=== PATIENT | female | born 1985 | race Caucasian/White ===

== ENCOUNTER → 2024-01-09 | Outpatient (CLI) | payer MEDICARE, OTHER ==
--- NOTE | 2024-01-11 09:44 | MM ---
Reason for Exam: Screening (asymptomatic). Last mammogram was performed 9 year(s) and 4 month(s) ago. Patient History: Menarche at age 15. First Full-Term at age 17. Patient has history of breast feeding. Patient used Hormonal Contraceptives for 6 years. Risk Values: Irlanda 5 year model risk: 0.3%. NCI Lifetime model risk: 6.7%. Prior Study Comparison: 08/22/2014 Bilateral Diagnostic Mammogram, [facility]. Tissue Density: The breasts are heterogeneously dense, which may obscure small masses. Findings: Analyzed By CAD. There is no suspicious group of microcalcifications or new suspicious mass in either breast. Benign appearing calcifications. Overall Assessment: Benign, BI-RAD 2 Management: Screening Mammogram of both breasts in 1 year. . Patient should continue monthly self-breast exams. A clinical breast exam by your physician is recommended on an annual basis. This exam should not preclude additional follow-up of suspicious palpable abnormalities. Note on Irlanda scores and lifetime risk: 1. A Irlanda score greater than 3% is considered moderate risk. If this is the case, consider specialist referral to assess eligibility for a risk reducing agent. 2. If overall lifetime risk for the development of breast cancer is 20% or higher, the patient may qualify for future screening with alternating mammogram and breast MRI. Electronically signed and approved by: Ramone Francisco M.D. Radiologis
== END | disposition home or self-care (01) ==
LOC: RADMAMWWP 08:56
PROVIDERS: ATTEND Family Medicine
DX: Z12.31 Encounter for screening mammogram for malignant neoplasm of breast (principal)
CPT/HCPCS: 77063; 77067

== ENCOUNTER 2024-02-21 16:01 | Inpatient (IN) | payer MEDICARE, OTHER ==
--- NOTE | 2024-02-21 16:48 | ED ---
General Adult HPI - General Source: patient, RN notes reviewed Mode of arrival: ambulatory Limitations: no limitations <Tosha Roth - Last Filed: 02/27/24 10:14> - General Source: RN notes reviewed, old records reviewed Mode of arrival: ambulatory Limitations: no limitations - History of Present Illness -: days(s) Location: head, face Radiation: non-radiation Severity scale (1-10): 7 Consistency: intermittent Improves with: none Worsens with: none Associated Symptoms: denies other symptoms Treatments Prior to Arrival: none <Herbert Cooney - Last Filed: 03/05/24 22:31> - General Chief complaint: Neuro Symptoms/Deficit Stated complaint: Possible stroke Time Seen by Provider: 02/21/24 16:19 - History of Present Illness Initial comments: Quick noteis a 38-year-old female presents emergency department chief complaint of loss, headaches, and neck pain. On Tuesday. Patient was seen by her primary care provider today which was recommended to report to the emergency department for evaluation of possible stroke. Patient states that over the past few days she has been experiencing slurred speech and at night will experience drooling and blurry vision. She denies history of heart attack or stroke. Is not on blood thinners. (Tosha Roth) This is a 38-year-old female with headaches neck pain may be some vision loss left-sided numbness and swelling of the face drooling and blurry vision. No significant history of same. Patient thinks she was having CVA or stroke (Herbert Cooney) - Related Data Home Medications Medication Instructions Recorded Confirmed Escitalopram [Lexapro] 10 mg PO DAILY 02/21/24 02/21/24 Ibuprofen [Motrin Ib] 200 mg PO Q8H PRN 02/21/24 02/21/24 Levothyroxine Sodium [Synthroid] 125 mcg PO DAILY 02/21/24 02/21/24 Previous Rx's Medication Instructions Recorded Aspirin 325 mg PO DAILY #30 tab 02/24/24 Atorvastatin [Lipitor] 80 mg PO HS #30 tab 02/24/24 Famotidine [Pepcid] 20 mg PO DAILY #30 tablet 02/24/24 Naproxen [Naprosyn] 250 mg PO BID 5 Days #10 tab 02/24/24 Nystatin 100,000 Unit/gm Powd 1 applic TOPICAL BID PRN #1 each 02/24/24 [Mycostatin Powder] Nystatin 100,000 Unit/ml Susp 5 ml PO QID 7 Days #150 ml 02/24/24 [Mycostatin Oral Susp] methylPREDNISolone [Medrol Dose 0 mg PO DIRECTED #1 packet 02/24/24 Pack] Allergies Allergy/AdvReac Type Severity Reaction Status Date / Time amoxicillin Allergy Rash/Hives Verified 02/21/24 21:03 Penicillins Allergy Rash/Hives Verified 02/21/24 21:03 Review of Systems ROS Other: All systems not noted in ROS Statement are negative. <Tosha Roth - Last Filed: 02/27/24 10:14> ROS Other: All systems not noted in ROS Statement are negative. <Herbert Cooney - Last Filed: 03/05/24 22:31> ROS Statement: Those systems with pertinent positive or pertinent negative responses have been documented in the HPI. Past Medical History Past Medical History: Thyroid Disorder History of Any Multi-Drug Resistant Organisms: None Reported Past Surgical History: No Surgical Hx Reported Past Psychological History: Anxiety, Bipolar, Depression Smoking Status: Never smoker Past Alcohol Use History: Rare Past Drug Use History: None Reported <Tosha Roth - Last Filed: 02/27/24 10:14> General Exam Limitations: no limitations <Tosha Roth - Last Filed: 02/27/24 10:14> General appearance: alert, in no apparent distress Head exam: Present: atraumatic, normocephalic, normal inspection Eye exam: Present: normal appearance, PERRL, EOMI. Absent: scleral icterus, conjunctival injection, periorbital swelling ENT exam: Present: normal exam, mucous membranes moist Neck exam: Present: normal inspection. Absent: tenderness, meningismus, lymphadenopathy Respiratory exam: Present: normal lung sounds bilaterally. Absent: respiratory distress, wheezes, rales, rhonchi, stridor Cardiovascular Exam: Present: regular rate, normal rhythm, normal heart sounds. Absent: systolic murmur, diastolic murmur, rubs, gallop, clicks GI/Abdominal exam: Present: soft, normal bowel sounds. Absent: distended, tenderness, guarding, rebound, rigid Extremities exam: Present: normal inspection, full ROM, normal capillary refill. Absent: tenderness, pedal edema, joint swelling, calf tenderness Back exam: Present: normal inspection Neurological exam: Present: alert, oriented X3, CN II-XII intact Psychiatric exam: Present: normal affect, normal mood Skin exam: Present: warm, dry, intact, normal color. Absent: rash <Herbert Cooney - Last Filed: 03/05/24 22:31> - General Exam Comments Initial Comments: Visual Physical Exam Vital signs reviewed General: Well-appearing, nontoxic, no acute distress. Head: Normocephalic, atraumatic Eyes: PERRLA, EOMI ENT: Airway patent Chest: Nonlabored breathing Skin: No visual rash, normal skin tone Neuro: Alert and oriented 3 Musculoskeletal: No gross abnormalities (Stieler,Tosha) Course <Herbert Cooney - Last Filed: 03/05/24 22:31> Vital Signs 02/21/24 02/21/24 02/22/24 16:17 19:21 02:46 Temperature 97.9 F Pulse Rate 87 90 84 Pulse Rate [ Pulse Oximetery ] Respiratory 18 18 18 Rate Blood Pressure 174/96 137/90 127/88 Blood Pressure [Right Arm Sitting] O2 Sat by Pulse 94 L 98 99 Oximetry 02/22/24 02/22/24 02/22/24 04:30 06:53 07:32 Temperature 97.9 F Pulse Rate 82 79 77 Pulse Rate [ Pulse Oximetery ] Respiratory 18 18 18 Rate Blood Pressure 126/76 116/88 137/74 Blood Pressure [Right Arm Sitting] O2 Sat by Pulse 100 96 97 Oximetry 02/22/24 02/22/24 02/22/24 11:11 14:22 18:12 Temperature 98.0 F 98.2 F Pulse Rate 96 96 Pulse Rate [ 74 Pulse Oximetery ] Respiratory 18 16 Rate Blood Pressure 106/68 Blood Pressure 119/61 [Right Arm Sitting] O2 Sat by Pulse 98 97 Oximetry - Reevaluation(s) Reevaluation #1: Medical records reviewed (Herbert Cooney) Reevaluation #2: Patient symptoms unchanged (Herbert Cooney) Reevaluation #3: Patient informed of results questions answered (Herbert Cooney) Reevaluation #4: Was pt. sent in by a medical professional or institution (ELOISA Woods, LIFE TRAINER, urgent care, hospital, or [facility]...) When possible be specific @ -no Did you speak to anyone other than the patient for history (EMS, parent, family, police, friend...)? What history was obtained from this source @ -no Did you review nursing and triage notes (agree or disagree)? Why? @ -agree Are old charts reviewed (outside hosp., previous admission, EMS record, old EKG, old radiological studies, urgent care reports/EKG's, [facility] records)? Report findings @ -yes Differential Diagnosis (chest pain, altered mental status, abdominal pain women, abdominal pain men, vaginal bleeding, weakness, fever, dyspnea, syncope, headache, dizziness, GI bleed, back pain, seizure, CVA, palpatations, mental health, musculoskeletal)? @ -prior EKG interpreted by me (3pts min.). @ -yes X-rays interpreted by me (1pt min.). @ -yes negative for acute disease CT interpreted by me (1pt min.). @ - U/S interpreted by me (1pt. min.). @ -no What testing was considered but not performed or refused? (CT, X-rays, U/S, labs)? Why? @ -none What meds were considered but not given or refused? Why? @ -none Did you discuss the management of the patient with other professionals (professionals i.e. ELOISA Woods, LIFE TRAINER, lab, RT, psych nurse, high school social studies tutor, prospecting driller helper, teacher, equal employment opportunity officer, vocational case manager)? Give summary @ -no Was smoking cessation discussed for >3mins.? @ -no Was critical care preformed (if so, how long)? @ -no Were there social determinants of health that impacted care today? How? (Homelessness, low income, unemployed, alcoholism, drug addiction, transportation, low edu. Level, literacy, decrease access to med. care, snf, rehab)? @ -none Was there de-escalation of care discussed even if they declined (Discuss DNR or withdrawal of care, Hospice)? DNR status @ -no What co-morbidities impacted this encounter? (DM, HTN, Smoking, COPD, CAD, Cancer, CVA, ARF, Chemo, Hep., AIDS, mental health diagnosis, sleep apnea, morbid obesity)? @ -none Was patient admitted / discharged? Hospital course, mention meds given and route, prescriptions, significant lab abnormalities, going to OR and other pertinent info. @ - 38 Female to ER for right-sided facial numbness CVA TIA, patient symptoms are improved not a tPA candidate secondary onset of timing. Patient symptoms are persistent here in the ER and will admit for neurology evaluation Admitted yes negative for acute disease Undiagnosed new problem with uncertain prognosis? @ -no Drug Therapy requiring intensive monitoring for toxicity (Heparin, Nitro, Ins ulin, Cardizem)? @ -no Were any procedures done? @ -no Diagnosis/symptom? @ -CVA versus TIA Acute, or Chronic, or Acute on Chronic? @ -Acute Uncomplicated (without systemic symptoms) or Complicated (systemic symptoms)? @ -Complicated Side effects of treatment? @ -no Exacerbation, Progression, or Severe Exacerbation? @ -exacerbation Poses a threat to life or bodily function? How? (Chest pain, USA, ME, pneumonia, PE, COPD, DKA, ARF, appy, cholecystitis, CVA, Diverticulitis, Homicidal, Suici bret, threat to staff... and all critical care pts) @ -yes with significant CVA (Herbert Cooney) Reevaluation #5: Differential CVA Ischemic stroke, hemorrhagic stroke, brain tumor, atypical migraine, Wernicke's encephalopathy, seizure, multiple sclerosis, meningitis, encephalitis, hypoglycemia, Guillain-Villatoro, electrolytes disturbance, myasthenia gravis.... This is not meant to be an all-inclusive list (Herbert Cooney) - Consultations Consultation #1: Poke with Dr. Palma who will see this patient (Herbert Cooney) EKG Findings - EKG Comments: EKG Findings:: EKG is sinus 89 RI 162 QRS 88 QTc 404 - EKG Results: EKG: interpreted by ERMD <Herbert Cooney - Last Filed: 03/05/24 22:31> Medical Decision Making - Lab Data Result diagrams: 02/21/24 16:45 02/21/24 16:45 <Tosha Roth - Last Filed: 02/27/24 10:14> - Lab Data Result diagrams: 02/21/24 16:45 02/21/24 16:45 - EKG Data -: EKG Interpreted by Me - Radiology Data Radiology results: report reviewed (Brain CTA head neck chest x-ray negative for acute disease), image reviewed <Herbert Cooney - Last Filed: 03/05/24 22:31> - Medical Decision Making I completed the quick note portion of this chart signed Tosha Roth PA-C (Tosha Roth) 38 Female to ER for right-sided facial numbness CVA TIA, patient symptoms are improved not a tPA candidate secondary onset of timing. Patient symptoms are persistent here in the ER and will admit for neurology evaluation (Herbert Cooney) - Lab Data Lab Results 02/21/24 02/21/24 02/21/24 Range/Units 02:00 16:45 16:45 WBC 7.1 (3.8-10.6) k/uL RBC 5.02 (3.80-5.40) m/uL Hgb 14.3 (11.4-16.0) gm/dL Hct 43.7 (34.0-46.0) % MCV 87.1 (80.0-100.0) fL MCH 28.4 (25.0-35.0) pg MCHC 32.7 (31.0-37.0) g/dL RDW 12.3 (11.5-15.5) % Plt Count 255 (150-450) k/uL MPV 8.8 Neutrophils % 57 % Lymphocytes % 28 % Monocytes % 7 % Eosinophils % 3 % Basophils % 1 % Neutrophils # 4.1 (1.3-7.7) k/uL Lymphocytes # 2.0 (1.0-4.8) k/uL Monocytes # 0.5 (0-1.0) k/uL Eosinophils # 0.2 (0-0.7) k/uL Basophils # 0.1 (0-0.2) k/uL PT 10.6 (10.0-12.5) sec INR 1.0 (<1.2) APTT 25.0 (22.0-30.0) sec Sodium (137-145) mmol/L Potassium (3.5-5.1) mmol/L Chloride (98-107) mmol/L Carbon Dioxide (22-30) mmol/L Anion Gap mmol/L BUN (7-17) mg/dL Creatinine (0.52-1.04) mg/dL Est GFR (CKD-EPI)AfAm (>60 ml/min/1.73 sqM) Est GFR (CKD-EPI)NonAf (>60 ml/min/1.73 sqM) Glucose (74-99) mg/dL Estimated Ave Glu mg/dL mg/dL Hemoglobin A1c (<=6.0) % Calcium (8.4-10.2) mg/dL Magnesium (1.6-2.3) mg/dL Total Bilirubin (0.2-1.3) mg/dL AST (14-36) U/L ALT (4-34) U/L Alkaline Phosphatase (38-126) U/L Creatine Kinase (30-135) U/L Troponin I (0.000-0.034) ng/mL Total Protein (6.3-8.2) g/dL Albumin (3.5-5.0) g/dL Triglycerides (0.00-149.00) mg/dL Cholesterol (0.00-200.00) mg/dL LDL Cholesterol, Calc (0.0-131.0) mg/dL VLDL Cholesterol, Calc (5.00-40.00) mg/dL HDL Cholesterol (40.00-60.00) mg/dL Cholesterol/HDL Ratio Ratio Acetylcholine Recept Ab <0.30 nmol/L 02/21/24 02/21/24 02/21/24 Range/Units 16:45 16:45 16:45 WBC (3.8-10.6) k/uL RBC (3.80-5.40) m/uL Hgb (11.4-16.0) gm/dL Hct (34.0-46.0) % MCV (80.0-100.0) fL MCH (25.0-35.0) pg MCHC (31.0-37.0) g/dL RDW (11.5-15.5) % Plt Count (150-450) k/uL MPV Neutrophils % % Lymphocytes % % Monocytes % % Eosinophils % % Basophils % % Neutrophils # (1.3-7.7) k/uL Lymphocytes # (1.0-4.8) k/uL Monocytes # (0-1.0) k/uL Eosinophils # (0-0.7) k/uL Basophils # (0-0.2) k/uL PT (10.0-12.5) sec INR (<1.2) APTT (22.0-30.0) sec Sodium 141 (137-145) mmol/L Potassium 3.8 (3.5-5.1) mmol/L Chloride 108 H (98-107) mmol/L Carbon Dioxide 27 (22-30) mmol/L Anion Gap 6 mmol/L BUN 9 (7-17) mg/dL Creatinine 0.45 L (0.52-1.04) mg/dL Est GFR (CKD-EPI)AfAm >90 (>60 ml/min/1.73 sqM) Est GFR (CKD-EPI)NonAf >90 (>60 ml/min/1.73 sqM) Glucose 106 H (74-99) mg/dL Estimated Ave Glu mg/dL 111 mg/dL Hemoglobin A1c 5.5 (<=6.0) % Calcium 9.1 (8.4-10.2) mg/dL Magnesium 1.8 (1.6-2.3) mg/dL Total Bilirubin 0.8 (0.2-1.3) mg/dL AST 41 H (14-36) U/L ALT 40 H (4-34) U/L Alkaline Phosphatase 98 (38-126) U/L Creatine Kinase 517 H (30-135) U/L Troponin I <0.012 (0.000-0.034) ng/mL Total Protein 7.6 (6.3-8.2) g/dL Albumin 4.6 (3.5-5.0) g/dL Triglycerides (0.00-149.00) mg/dL Cholesterol (0.00-200.00) mg/dL LDL Cholesterol, Calc (0.0-131.0) mg/dL VLDL Cholesterol, Calc (5.00-40.00) mg/dL HDL Cholesterol (40.00-60.00) mg/dL Cholesterol/HDL Ratio Ratio Acetylcholine Recept Ab nmol/L 02/21/24 02/22/24 02/22/24 Range/Units 22:26 02:00 06:00 WBC (3.8-10.6) k/uL RBC (3.80-5.40) m/uL Hgb (11.4-16.0) gm/dL Hct (34.0-46.0) % MCV (80.0-100.0) fL MCH (25.0-35.0) pg MCHC (31.0-37.0) g/dL RDW (11.5-15.5) % Plt Count (150-450) k/uL MPV Neutrophils % % Lymphocytes % % Monocytes % % Eosinophils % % Basophils % % Neutrophils # (1.3-7.7) k/uL Lymphocytes # (1.0-4.8) k/uL Monocytes # (0-1.0) k/uL Eosinophils # (0-0.7) k/uL Basophils # (0-0.2) k/uL PT (10.0-12.5) sec INR (<1.2) APTT (22.0-30.0) sec Sodium (137-145) mmol/L Potassium (3.5-5.1) mmol/L Chloride (98-107) mmol/L Carbon Dioxide (22-30) mmol/L Anion Gap mmol/L BUN (7-17) mg/dL Creatinine (0.52-1.04) mg/dL Est GFR (CKD-EPI)AfAm (>60 ml/min/1.73 sqM) Est GFR (CKD-EPI)NonAf (>60 ml/min/1.73 sqM) Glucose (74-99) mg/dL Estimated Ave Glu mg/dL mg/dL Hemoglobin A1c (<=6.0) % Calcium (8.4-10.2) mg/dL Magnesium (1.6-2.3) mg/dL Total Bilirubin (0.2-1.3) mg/dL AST (14-36) U/L ALT (4-34) U/L Alkaline Phosphatase (38-126) U/L Creatine Kinase (30-135) U/L Troponin I <0.012 <0.012 (0.000-0.034) ng/mL Total Protein (6.3-8.2) g/dL Albumin (3.5-5.0) g/dL Triglycerides 120.00 (0.00-149.00) mg/dL Cholesterol 124.00 (0.00-200.00) mg/dL LDL Cholesterol, Calc 57.0 (0.0-131.0) mg/dL VLDL Cholesterol, Calc 24.00 (5.00-40.00) mg/dL HDL Cholesterol 43.00 (40.00-60.00) mg/dL Cholesterol/HDL Ratio 2.88 Ratio Acetylcholine Recept Ab nmol/L Disposition <Tosha Roth - Last Filed: 02/27/24 10:14> <Herbert Cooney - Last Filed: 03/05/24 22:31> Clinical Impression: Cerebrovascular accident (CVA), Transient cerebral ischemia Disposition: ADMITTED IP TO THIS HOSP Condition: Stable
[2024-02-21 17:11] LABS: Basophils # (A) 0.1 k/uL (0-0.2); Basophils % (A) 1 %; Eosinophils # (A) 0.2 k/uL (0-0.7); Eosinophils % (A) 3 %; HCT 43.7 % (34.0-46.0); HGB 14.3 gm/dL (11.4-16.0); Lymphocytes % (A) 28 %; MCH 28.4 pg (25.0-35.0); MCHC 32.7 g/dL (31.0-37.0); MCV 87.1 fL (80.0-100.0); Mean Platelet Volume 8.8; Monocytes # (A) 0.5 k/uL (0-1.0); Monocytes % (A) 7 %; Neutrophils # (A) 4.1 k/uL (1.3-7.7); Neutrophils % (A) 57 %; Platelet Count 255 k/uL (150-450); RBC 5.02 m/uL (3.80-5.40); RDW 12.3 % (11.5-15.5); WBC 7.1 k/uL (3.8-10.6)
[2024-02-21 17:20] LABS: Prothrombin Time 10.6 sec (10.0-12.5)
[2024-02-21 17:23] LABS: ALT 40 U/L (4-34); AST 41 U/L (14-36); African American GFR (CKD) >90 (>60 ml/min/1.73 sqM); Albumin 4.6 g/dL (3.5-5.0); Alkaline Phosphatase 98 U/L (38-126); Anion Gap 6 mmol/L; Blood Urea Nitrogen 9 mg/dL (7-17); Calcium 9.1 mg/dL (8.4-10.2); Carbon Dioxide 27 mmol/L (22-30); Chloride 108 mmol/L (98-107); Creatine Kinase 517 U/L (30-135); Glucose 106 mg/dL (74-99); Magnesium 1.8 mg/dL (1.6-2.3); Non-African American GFR(CKD) >90 (>60 ml/min/1.73 sqM); Potassium 3.8 mmol/L (3.5-5.1); Sodium 141 mmol/L (137-145); Total Bilirubin 0.8 mg/dL (0.2-1.3); Total Protein 7.6 g/dL (6.3-8.2)
--- NOTE | 2024-02-21 17:47 | CT ---
EXAMINATION TYPE: CT brain wo con DATE OF EXAM: 02/21/2024 COMPARISON: None. HISTORY: dizziness, slurred speech, [place] CT DLP: 1210.4 mGycm. Automated Exposure Control for Dose Reduction was Utilized. TECHNIQUE: CT scan of the head is performed without contrast. FINDINGS: There is no acute intracranial hemorrhage, mass effect, or midline shift identified. The ventricles and sulci are within normal limits in size. Matt-white matter differentiation is maintai frances. No suspicious opacification mastoid air cells. The globes are intact and the visualized sinuses are clear. IMPRESSION: No acute intracranial hemorrhage or midline shift is seen.
[2024-02-21] MEDS: MORPHINE SULFATE 4 MG/ML SYRINGE IVP STA (20:16)
--- NOTE | 2024-02-21 20:34 | XR ---
EXAMINATION TYPE: XR chest 2V DATE OF EXAM: 02/21/2024 7:32 PM CLINICAL INDICATION:Female, 38 years old with history of altered mental status; [facility] COMPARISON: None TECHNIQUE: XR chest 2V Frontal and lateral views of the chest. FINDINGS: Lungs/Pleura: Subsegmental atelectasis present in the lung bases. No pleural effusions or pneumothora x Pulmonary vascularity: Unremarkable. Heart/mediastinum: Cardiomediastinal silhouette is unremarkable. Musculoskeletal: No acute osseous pathology. IMPRESSION: No acute cardiopulmonary disease/process.
--- NOTE | 2024-02-21 21:28 | CT ---
EXAMINATION TYPE: CT angio head neck CT DLP: 606.4 mGycm, Automated exposure control for dose reduction was used. DATE OF EXAM: 02/21/2024 9:08 PM COMPARISON: CT brain same day. CLINICAL INDICATION:Female, 38 years old with history of rizo; PHH, headache TECHNIQUE: Axially acquired helical CT angiogram of the head and neck was obtained with contrast. Axi al images are supplemented with 3D reconstructions which [facility] NASCET criteria used. Contrast used:65 cc mL of Isovue 370 with IV Contrast, Oral contrast used: None. FINDINGS: CTA HEAD: The visualized portions of the internal carotid arteries, middle cerebral arteries, anterior cerebral arteries, and posterior cerebral arteries are patent. The basilar and vertebral arteries are patent. The bilateral vertebral artery V4 segments are diminut latisha in size, however there is partial circulation identified supplying the posterior cerebral a rteries. Basilar artery is also diminutive in size, however its branches are patent CTA NECK: Right Carotid System: The common carotid artery and external carotid artery are patent. The carotid bifurcation demonstrate s no evidence of hemodynamically significant stenosis. The remaining portions of the internal carotid artery demonstrate normal size without significant narrowing. Left Carotid System: The common carotid artery and external carotid artery are patent. The carotid bifurcation demonstrate s no evidence of hemodynamically significant stenosis. The remaining portions of the internal carotid artery demonstrate normal size without significant narrowing. Vertebral arteries are patent without evidence hemodynamically significant stenosis. There is a three-vessel aortic arch. The origins of the great vessels are patent. No evidence of hemo dynamically significant stenosis. Upper thorax: Unremarkable IMPRESSION: 1. No evidence of dissection of the cervical internal carotid arteries or vertebral arteries or any e vidence of significant stenosis at the carotid bifurcations. 2. No evidence of intracranial high-grade stenosis or intracranial aneurysm.
[2024-02-22] MEDS: ASPIRIN 325 MG TAB PO STA (00:20)
[2024-02-22] MEDS: SODIUM CHLORIDE 0.9% 1,000 ML IV SCH (00:22)
[2024-02-22] MEDS: MORPHINE SULFATE 4 MG/ML SYRINGE IVP PRN (04:32)
[2024-02-22] MEDS: ASPIRIN 325 MG TAB PO SCH (08:08)
[2024-02-22 09:10] LABS: Chol/HDL Ratio 2.88 Ratio
--- NOTE | 2024-02-22 16:28 | P.CNNES ---
History of Present Illness Consult date: 02/22/24 Requesting physician: Herbert Cooney Reason for Consult: dysarthria History of Present Illness: Patient is a 38-year-old right-handed female came to the hospital yesterday (Tuesday) at 4:01 PM for acute onset of neurological symptoms. Patient states that on Tuesday at 8 PM she was sitting when she suddenly noticed numbness of the right side of the neck pointing to the lateral side of the neck, and blurred vision. Also complaining of some pain in the upper thoracic spine region and posterior shoulders bilaterally. She also noticed for dizziness and she started slurring words could barely talk. She was drooling. She laid there for half an hour, and felt was "out of it" although still knew her surroundings and would able to answer questions if somebody would ask. Patient's also noticed right facial droop, but was not very significant, very minimally noticeable. Patient stayed home. 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 She went to the trip, but did not talk much because of the slurring. She tried her son's chicken nuggets, but almost choked on it. Her symptoms stayed like this, but then she decided to come to the ER on Tuesday (yesterday). Patient states that her slurring gets worse at around 8 or 9 PM along with drooling, but then is better during the daytime. Facial droop has resolved. Patient now complaining of numbness of right side of the neck, with pain in the upper dorsal spine and across the posterior shoulder region. Denies any numbness or tingling of the extremities or any focal weakness or balance problem. Patient's noticed that the facial droop lasted for about a day and a half. At present she also feels her left ear feels draining. Sometimes she is noticing "stabbing pain in the right posterior shoulder region which is better with Tylenol. Also complaining of some pain in the upper sternal region. Vital signs on arrival blood pressure 174/96, which came down to 137/90. Pulse rate 87 temperature 97.9. Blood test shows normal CBC, PT PTT, normal basic metabolic panel. AST is 41, ALT 40, CK5 and 17. Troponins negative. Lipid panel with cholesterol 124 LDL 57, HDL [address] head showed no acute intracranial process. I personally reviewed CT head, agree with the findings. There is probable arachnoid cyst involving the posterior fossa. EKG showed sinus rhythm. Chest x-ray showed no acute process. CTA of head and neck showed no evidence of dissection of the cervical internal carotid arteries or vertebral arteries or any evidence of significant stenosis at the carotid bifurcation. No evidence of intracranial high-grade stenosis or intracranial aneurysm. Home medications include levothyroxine, ibuprofen, Abilify 10 mg daily and Lexapro 10 mg daily. Patient does not take any antiplatelet medication at home. Patient is a non-smoker, denies hypertension diabetes or any alcohol use. Denies any history of injury. Does not follow-up with the chiropractors. Patient has history of "mood swings" and anxiety for which she has been on Lexapro for several months. Just on 01/30/2024 she was started on Abilify 10 mg daily. Also takes levothyroxine. Review of Systems Constitutional: Denies chills, Denies fever Eyes: bilateral blurred vision, denies diplopia, denies pain, denies loss of vision Ears: deny: decreased hearing, ear discharge Ears, nose, mouth and throat: Reports headache (Bad migraine tuesday, had C[place] off and on since then), Denies sore throat, Denies vertigo Cardiovascular: Denies chest pain, Denies lightheadedness, Denies shortness of breath Respiratory: Reports cough (Front of chest) Gastrointestinal: Denies abdominal pain, Denies diarrhea, Denies nausea, Denies vomiting Genitourinary: Denies dysuria, Denies hematuria, Denies urge incontinence Musculoskeletal: Reports low back pain, Reports neck pain Integumentary: Denies pruritus, Denies rash Neurological: Reports as per HPI Psychiatric: Reports anxiety, Reports depression Endocrine: Reports fatigue, Denies weight change Hematologic/Lymphatic: Reports easy bruising, Denies easy bleeding, Denies lymphadenopathy Past Medical History Past Medical History: Thyroid Disorder History of Any Multi-Drug Resistant Organisms: None Reported Past Surgical History: No Surgical Hx Reported Past Psychological History: Anxiety, Bipolar, Depression Smoking Status: Never smoker Past Alcohol Use History: Rare Past Drug Use History: None Reported Medications and Allergies Home Medications Medication Instructions Recorded Confirmed Type ARIPiprazole [Abilify] 10 mg PO DAILY 02/21/24 02/21/24 History Escitalopram [Lexapro] 10 mg PO DAILY 02/21/24 02/21/24 History Ibuprofen [Motrin Ib] 200 mg PO Q8H PRN 02/21/24 02/21/24 History Levothyroxine Sodium [Synthroid] 125 mcg PO DAILY 02/21/24 02/21/24 History Allergies Allergy/AdvReac Type Severity Reaction Status Date / Time amoxicillin Allergy Rash/Hives Verified 02/21/24 21:03 Penicillins Allergy Rash/Hives Verified 02/21/24 21:03 Physical Examination - Vital Signs Vital Signs: Vital Signs Temp Pulse Pulse Resp BP BP Pulse Ox 02/22/24 11:11 98.0 F 74 18 119/61 98 02/22/24 07:32 97.9 F 77 18 137/74 97 02/22/24 06:53 79 18 116/88 96 02/22/24 04:30 82 18 126/76 100 02/22/24 02:46 84 18 127/88 99 02/21/24 19:21 90 18 137/90 98 02/21/24 16:17 97.9 F 87 18 174/96 94 L Intake and Output 02/21/24 02/22/24 02/22/24 22:59 06:59 14:59 Other: Weight 99.79 kg Patient is a middle aged female, very pleasant, no acute distress. Patient is alert awake oriented to time place and person. Speech and language functions are normal. Patient can name and repeat very well. No aphasia or dysarthria. Attention, concentration and fund of knowledge is adequate. On cranial nerve examination, pupils are equal, round and reacting to light, visual galeas are full on confrontation, with no neglect on double simultaneous stimulation. Extraocular muscles are intact with no nystagmus. Face is symmetric, tongue protrudes to the midline. Palatal elevation and sensation normal, hearing and shoulder shrug normal, facial sensation normal. On muscle strength testing, there is no pronator drift and the strength is normal in arms and legs distally and proximally. Deep tendon reflexes are symmetric trace at the biceps and brachioradialis, 1+ at the knees, 1 ankles and plantars are withdrawal bilaterally. Sensory to touch is equal with no neglect on double simultaneous stimulation. Cerebellar function showed no ataxia for [id number] testing. No dysdiadochokinesia. No ataxia for [id number] testing on either side. Tone and bulk of muscles normal. Gait deferred.. On general examination, there is no carotid bruit or murmur, S1-S2 audible. Chest is clear on consultation. Abdomen is soft nontender. No organomegaly, bowel sounds present. Peripheral pulses are present. No peripheral edema. Results - Laboratory Findings CBC and BMP: 02/21/24 16:45 02/21/24 16:45 Abnormal Lab Findings: Abnormal Labs 02/21/24 16:45 Chloride 108 H Creatinine 0.45 L Glucose 106 H AST 41 H ALT 40 H Creatine Kinase 517 H Assessment and Plan Assessment: * 38-year-old female presenting with vague neurological symptoms of intermittent difficulty speaking, numbness of right side of the neck, blurred vision, dizziness, pain in the upper dorsal spine and across the posterior shoulder. Family also noticed some possible right facial droop that resolved in about a day and a half. Localization of symptoms are somewhat difficult, uncertain if cerebral, or cervical as the liter would not support facial drooping, blurred vision. Her neurological examination is normal. Patient's current NIH stroke scale is 0. CTA head and neck ruled out carotid or vertebral artery dissection. Patient not a candidate for tPA, as she came outside the window. * Anxiety disorder, mood swings * Hypothyroidism Plan: * Symptoms are very unusual, atypical. We will check MRI of the brain with and without contrast, rule out any CVA or demyelinating disease. * CTA of head and neck showed no evidence of dissection of the cervical internal carotid arteries or vertebral arteries or any evidence of significant stenosis at the carotid bifurcation. No evidence of intracranial high-grade stenosis or intracranial aneurysm. * 2D echo rule out embolic source. * Lipid panel is well-controlled with cholesterol 124, LDL 57, HDL 43 and trig lycerides 120. * Hemoglobin A1c. * Agree with starting aspirin 325 mg daily for now. * Telemetry monitoring. * Patient was just recently started on Abilify 3 weeks ago. Discontinue Abilify for now. * Neurology will follow. Thank you for the consult.
[2024-02-22] MEDS: ATORVASTATIN 80 MG TAB PO SCH (21:48)
[2024-02-22] MEDS: ESCITALOPRAM 10 MG TAB PO SCH (21:49)
[2024-02-22] MEDS: LEVOTHYROXINE 125 MCG TAB PO SCH (21:49)
[2024-02-22] MEDS: PANTOPRAZOLE 40 MG/10 ML VIAL IVP SCH (21:49)
[2024-02-23] MEDS: ACETAMINOPHEN TAB 325 MG TAB PO PRN (06:24)
--- NOTE | 2024-02-23 08:56 | P.HPIM ---
History of Present Illness H&P Date: 02/22/24 Chief Complaint: Dysarthria This is a 38-year-old female with past medical history significant for migraines, hypothyroidism, bipolar, anxiety, depression and multiple other medical issues presented to the ER yesterday with complaints of right-sided facial numbness, accompanied by intermittent blurred vision and dysarthria.. Vague historian. reports over the the last week she had mild migraines, neck pain approximately C5 to C6. Denies syncope, fall, injury or trauma. Denies chiropractor treatment .Denies motor strength loss, denies incoordination, denies dropping things. Denies numbness or tingling of extremities. Denies smoking, alcohol or illicit drug use. reports on Tuesday, another mild migraine developed accompanied by tenderness along bilateral posterior shoulders. Tuesday night, between 7 and 8 PM, symptoms progressed ,developed trouble speaking, fluctuating blurred vision ,swollen, numb jawline. Denies difficulty swallowing or eating. Denies facial droop. denies chest pain, palpitations or shortness of breath. Tuesday, took her son to the zoo. Proceeded to see her PCP on Tuesday who referred patient to the ER. Reports medication compliance including Abilify which was recently started on 01/30/2024. On admission, hypertensive with blood pressure 174/96. Afebrile, normal WBC. Hematology, coagulation panels unremarkable. Electrolytes and renal function stable, Hemoglobin A1c 5.5, troponins negative x 3, creatinine kinase 517, triglycerides 120, cholesterol 124, LDL 57, HDL 43.. Brain CT reported no acute intracranial hemorrhage or midline shift. EKG reported sinus rhythm, chest x-ray reported nonacute. CT angio head and neck reported no evidence of dissection of the cervical internal carotid arteries or vertebral arteries or any evidence of significant stenosis in the carotid bifurcations, no evidence of intracranial high-grade stenosis or intracranial aneurysm. Review of Systems ROS Statement: Those systems with pertinent positive or pertinent negative responses have been documented in the HPI. ROS Other: All systems not noted in ROS Statement are negative. Past Medical History Past Medical History: Thyroid Disorder History of Any Multi-Drug Resistant Organisms: None Reported Past Surgical History: No Surgical Hx Reported Past Psychological History: Anxiety, Bipolar, Depression Smoking Status: Never smoker Past Alcohol Use History: Rare Past Drug Use History: None Reported Medications and Allergies Home Medications Medication Instructions Recorded Confirmed Type ARIPiprazole [Abilify] 10 mg PO DAILY 02/21/24 02/21/24 History Escitalopram [Lexapro] 10 mg PO DAILY 02/21/24 02/21/24 History Ibuprofen [Motrin Ib] 200 mg PO Q8H PRN 02/21/24 02/21/24 History Levothyroxine Sodium [Synthroid] 125 mcg PO DAILY 02/21/24 02/21/24 History Allergies Allergy/AdvReac Type Severity Reaction Status Date / Time amoxicillin Allergy Rash/Hives Verified 02/21/24 21:03 Penicillins Allergy Rash/Hives Verified 02/21/24 21:03 Physical Exam Vitals: Vital Signs Temp Pulse Pulse Resp BP BP Pulse Ox 02/23/24 04:00 98.0 F 85 18 117/75 97 02/23/24 02:00 18 02/23/24 00:00 98 18 134/79 98 02/22/24 20:00 98.2 F 95 18 127/85 97 02/22/24 18:12 98.2 F 96 16 106/68 97 02/22/24 14:22 96 02/22/24 11:11 98.0 F 74 18 119/61 98 Intake and Output 02/22/24 02/23/24 02/23/24 22:59 06:59 14:59 Intake Total 120 Balance 120 Intake: Oral 120 Other: Voiding Method Toilet Toilet # Voids 1 2 Weight 99.79 kg PHYSICAL EXAM: VITAL SIGNS: [As above] GENERAL: Alert and oriented x 3, sitting up on stretcher, no acute distress, speech fluent, clear, appropriate HEENT: Normocephalic, atraumatic, pupils equal and reactive ,conjunctivae normal. eyes normal. Face symmetric, tongue midline. NECK: No JVD. No thyroid enlargement. No LNs CARDIOVASCULAR: S1, S2 regular.. No murmur RESPIRATION: Unlabored, equal air entry, clear to auscultation. ABDOMEN: Soft, nontender . No guarding. no masses palpable. No ascites, No hepatosplenomegaly.Bowel sounds heard. LEGS: No edema. no swelling NERVOUS SYSTEM: Cranial N 2-12 grossly normal. Moves all 4 limbs. No focal deficits. Strength and sensation grossly intact. Skin: Warm and dry, no rash noted. Results CBC & Chem 7: 06/11/24 16:45 02/21/24 16:45 Thrombosis Risk Factor Assmnt - Choose All That Apply Any of the Below Risk Factors Present?: Yes Each Factor Represents 1 point: Obesity (BMI >25) Other Risk Factors: No Thrombosis Risk Factor Assessment Total Risk Factor Score: 1 Thrombosis Risk Factor Assessment Level: Low Risk Assessment and Plan Assessment: Right-sided facial numbness, fluctuating episodes of difficulty speaking, blurred vision, neck pain ,possible complex migraine with a pinched nerve C5-C6, rule out TIA CVA. Hold Abilify, recently started on Abilify 01/30/2024. Hypertension Hypothyroidism Bipolar disorder Plan: Continue on current medication regimen ,monitoring and symptomatic treatment. Hold Abilify as it can cause similar adverse reactions. IV fluid hydration. Neurology workup in progress with neurology consult in place. Aspirin daily. PPI in place for GI prophylaxis. The impression and plan of care has been dictated as directed. : I performed a history and examination of this patient, discussed the same with the dictator. I agree with the dictator's note ,documented as a scribe. Any additional findings or plans will be noted.
--- NOTE | 2024-02-23 15:53 | CA ---
Transthoracic Echo Report Name: Nay Martinez Age: 38 Gender: F : 1985 Exam Date: 02/22/2024 16:09 Exam Location: [facility] Ht (in): 67 Wt (lb): 220 Ordering Physician: Herbert Cooney DO Attending/Referring Phys: Lobbyist Nataly Monae RDCS Procedure CPT: Indications: Thrombus Cardiac Hx: Technical Quality: Good Contrast 1: Total Dose (mL): Contrast 2: Total Dose (mL): MEASUREMENTS (Male / Female) Normal Values 2D ECHO LV Diastolic Diameter PLAX 4.9 cm 4.2 - 5.9 / 3.9 - 5.3 cm LV Systolic Diameter PLAX 3.3 cm IVS Diastolic Thickness 0.8 cm 0.6 - 1.0 / 0.6 - 0.9 cm LVPW Diastolic Thickness 0.9 cm 0.6 - 1.0 / 0.6 - 0.9 cm LV Relative Wall Thickness 0.3 RV Internal Dim ED PLAX 2.9 cm LA Systolic Diameter LX 3.1 cm 3.0 - 4.0 / 2.7 - 3.8 cm LA Volume 45.9 cm??? 18 - 58 / 22 - 52 cm??? LA Volume Index 20.8 cm???/m??? 16 - 28 cm???/m??? M-MODE Aortic Root Diameter MM 2.7 cm AV Cusp Separation MM 2.2 cm DOPPLER AV Peak Velocity 178.0 cm/s AV Peak Gradient 12.7 mmHg MV Area PHT 5.0 cm??? Mitral E Point Velocity 91.5 cm/s Mitral A Point Velocity 76.2 cm/s Mitral E to A Ratio 1.2 MV Deceleration Time 152.4 ms TR Peak Velocity 227.8 cm/s TR Peak Gradient 20.8 mmHg Right Ventricular Systolic Press 25.8 mmHg FINDINGS Left Ventricle Left ventricular ejection fraction is estimated at 55-60 %. Left ventricular cavity size normal. Left ventricular wall thickness normal. Normal left ventricular wall motion. Right Ventricle Normal right ventricular size and function. Right ventricular systolic pressure within normal limits. Right Atrium Normal right atrial size. No right atrial thrombus or mass seen. Negative agitated saline bubble study for right to left shunt. Left Atrium Normal left atrial size. No left atrial thrombus or mass present. Normal left atrial size. Mitral Valve Structurally normal mitral valve. Trace to mild mitral regurgitation. Aortic Valve Trileaflet aortic valve. No aortic valve stenosis or regurgitation. Tricuspid Valve Structurally normal tricuspid valve. Mild tricuspid regurgitation. Pulmonic Valve Structurally normal pulmonic valve. Trace pulmonic regurgitation. Pericardium No pericardial or pleural effusion. Aorta Normal size aortic root and proximal ascending aorta. CONCLUSIONS Normal LV size and systolic function Negative bubble study Previewed by: Dr. Benjy Stringer MD (Electronically Signed) Final Date: 23 February 2024 15:52
[2024-02-23] MEDS: BENZOCAINE/MENTHOL LOZENG 1 EACH LOZENGE MUCOUS MEM PRN (16:47)
[2024-02-23] MEDS: KETOROLAC 15 MG/ML 1 ML VIAL IVP PRN (17:21)
[2024-02-23] MEDS ORDERED: KETOROLAC 15 MG/ML 1 ML VIAL IVP SCH (18:00)
[2024-02-23 20:53] VITALS: RESP 18
--- NOTE | 2024-02-23 21:36 | P.PN ---
Subjective Progress Note Date: 02/23/24 This is a 38-year-old female with past medical history significant for migraines, hypothyroidism, bipolar, anxiety, depression and multiple other medical issues presented to the ER yesterday with complaints of right-sided facial numbness, accompanied by intermittent blurred vision and dysarthria.. Vague historian. reports over the the last week she had mild migraines, neck pain approximately C5 to C6. Denies syncope, fall, injury or trauma. Denies chiropractor treatment .Denies motor strength loss, denies incoordination, denies dropping things. Denies numbness or tingling of extremities. Denies smoking, alcohol or illicit drug use. reports on Tuesday, another mild migraine developed accompanied by tenderness along bilateral posterior shoulders. Tuesday night, between 7 and 8 PM, symptoms progressed ,developed trouble speaking, fluctuating blurred vision ,swollen, numb jawline. Denies difficulty swallowing or eating. Denies facial droop. denies chest pain, palpitations or shortness of breath. Tuesday, took her son to the zoo. Proceeded to see her PCP on Tuesday who referred patient to the ER. Reports medication compliance including Abilify which was recently started on 01/30/2024. On admission, hypertensive with blood pressure 174/96. Afebrile, normal WBC. Hematology, coagulation panels unremarkable. Electrolytes and renal function stable, Hemoglobin A1c 5.5, troponins negative x 3, creatinine kinase 517, triglycerides 120, cholesterol 124, LDL 57, HDL 43.. Brain CT reported no acute intracranial hemorrhage or midline shift. EKG reported sinus rhythm, chest x-ray reported nonacute. CT angio head and neck reported no evidence of dissection of the cervical internal carotid arteries or vertebral arteries or any evidence of significant stenosis in the carotid bifurcations, no evidence of intracranial high-grade stenosis or intracranial aneurysm. 02/23/2024 Patient is evaluated in follow up today on the medical floor. Neurology following and recommending MRI and echocardiogram which MRI is not able to be completed until tomorrow. Echocardiogram reveals normal LV size and systolic function and negative bubble study. Patients dysarthria dysphagia and right sided facial droop have resolved. She currently is complaining of significant pain in the right neck/radiating into the shoulder. States motrin is not helping. She has focal tenderness on the cervical spine. Troponin levels have been negative. Lipid panel WNL. Review of Systems Constitutional: Denied any fatigue denied any fever. Cardio vascular: denied any chest pain, palpitations Gastrointestinal: denied any nausea, vomiting, diarrhea Pulmonary: Denied any shortness of breath cough Neurologic denied any new focal deficits All inpatient medications were reviewed and appropriate changes in these medications as dictated in the interval history and assessment and plan. PHYSICAL EXAMINATION: GENERAL: The patient is alert and oriented x3, not in any acute distress. Well developed, well nourished. HEENT: Pupils are round and equally reacting to light. EOMI. No scleral icterus. No conjunctival pallor. Normocephalic, atraumatic. No pharyngeal erythema. No thyromegaly. CARDIOVASCULAR: S1 and S2 present. No murmurs, rubs, or gallops. PULMONARY: Chest is clear to auscultation, no wheezing or crackles. ABDOMEN: Soft, nontender, nondistended, normoactive bowel sounds. No palpable organomegaly. MUSCULOSKELETAL: No joint swelling or deformity. EXTREMITIES: No cyanosis, clubbing, or pedal edema. NEUROLOGICAL: Gross neurological examination did not reveal any focal deficits. SKIN: No rashes. Assessment and Plan Right-sided facial numbness, fluctuating episodes of difficulty speaking, blurred vision, neck pain TIA/CVA vs. complex migraine Hypertension Hypothyroidism Bipolar disorder GI prophylaxis DVT prophylaxis subcu heparin Plan Neurology recommending ot hold Abilify, recently started on Abilify 01/30/2024. Continue aspirin and statin therapy Continue pain management with motrin and IV toradol Check cervical spine xray. Continue IV fluids PT/OT consultation. The impression and plan of care has been dictated by June Nayak, Nurse Practitioner as directed. Dr. Anabella MD I have performed a history and physical examination and medical decision making of this patient, discussed the same with the dictator, and agree with the dictators assessment and plan as written, documented as a scribe. Based on total visit time, I have performed more than 50% of this visit. Objective - Vital Signs Vital signs: Vital Signs Temp 97.7 F 02/23/24 08:00 Pulse 103 H 02/23/24 08:00 Resp 18 02/23/24 08:00 BP 136/92 02/23/24 08:00 Pulse Ox 96 02/23/24 08:00 FiO2 Intake & Output 02/22/24 02/23/24 02/23/24 18:59 06:59 18:59 Intake Total 120 462 Balance 120 462 Weight 99.79 kg Intake: Oral 120 462 Other: Voiding Method Toilet # Voids 2 - Labs CBC & Chem 7: 02/21/24 16:45 02/21/24 16:45 Assessment and Plan Time with Patient: Less than 30
[2024-02-23] MEDS: HEPARIN SODIUM,PORCINE 5,000 UNIT/ML 1 ML VIAL SQ SCH (23:16)
--- NOTE | 2024-02-24 10:05 | XR ---
EXAMINATION TYPE: XR cervical spine comp DATE OF EXAM: 02/23/2024 CLINICAL HISTORY: pain COMPARISON: NONE TECHNIQUE: Frontal, lateral, oblique, swimmers, and open mouth view of the cervical spine are obtaine d. FINDINGS: The cervical spine is visualized in its entirety from C1 thru the top of T1 level. It is s atisfactory in alignment without evidence of acute fracture or dislocation. The pre-vertebral soft t issue appears within normal limits. Disc spaces are well preserved. The C1-C2 articulation is unremar kable on the open mouth view. The oblique images are within normal limits. IMPRESSION: No acute fracture or dislocation is seen in the cervical spine.ICD 10 NO FRACTURE, INITI AL EVALUATION
[2024-02-24 11:20] VITALS: BP 133/89; PULSE 80; TEMP 97.5
[2024-02-24] MEDS ORDERED: NYSTATIN 100,000 UNIT/GM POWD 15 GM TOPICAL PRN (11:36)
--- NOTE | 2024-02-24 11:57 | MR ---
EXAMINATION TYPE: MR brain wo/w con DATE OF EXAM: 02/24/2024 COMPARISON: None HISTORY: Slurred speech, blurred vision, headache TECHNIQUE: Multiplanar, multisequence images of the brain and brainstem is performed without and with IV contras t, utilizing 10 mL intravenous Gadavist . Findings: On the T1-weighted sagittal images, the midline structures including the craniovertebral junction rel ationships appear normal. The ventricles, basal cisterns and sulci over the convexities are within normal limits and there is n o mass effect or shift of midline structures No abnormal signal intensity is seen throughout the brain parenchyma. Based on diffusion-weighted kika ging, there is no diffusion restriction or acute ischemic event. Following contrast administration, there is no pathological enhancement. The posterior fossa including the brainstem, fourth ventricle and cerebellar pontine angles appear no rmal. Intraorbital contents are normal and symmetric. Visualized paranasal sinuses and mastoid air cells ar e well aerated. IMPRESSION: No significant abnormality seen.
--- NOTE | 2024-02-24 12:05 | P.PN ---
Subjective Progress Note Date: 02/23/24 Patient was seen for a follow-up. Patient states that her throat feels slightly scratchy, slightly slurred speech. Her back is hurting about 5/10. She did not have worsening of slurring last night. Continues to have very vague symptoms. Objective - Vital Signs Vital signs: Vital Signs Temp 97.7 F 02/23/24 08:00 Pulse 103 H 02/23/24 08:00 Resp 18 02/23/24 08:00 BP 136/92 02/23/24 08:00 Pulse Ox 96 02/23/24 08:00 FiO2 Intake & Output 02/22/24 02/23/24 02/23/24 18:59 06:59 18:59 Intake Total 120 698 Balance 120 698 Weight 99.79 kg Intake: Oral 120 698 Other: Voiding Method Toilet # Voids 2 3 - Exam Unchanged. - Labs CBC & Chem 7: 02/21/24 16:45 02/21/24 16:45 Assessment and Plan Assessment: * 38-year-old female presenting with vague neurological symptoms of intermittent difficulty speaking, numbness of right side of the neck, blurred vision, dizziness, pain in the upper dorsal spine and across the posterior shoulder. Family also noticed some possible right facial droop that resolved in about a day and a half. Localization of symptoms are somewhat difficult, uncertain if cerebral, or cervical as the liter would not support facial drooping, blurred vision. Her neurological examination is normal. Patient's current NIH stroke scale is 0. CTA head and neck ruled out carotid or vertebral artery dissection. Patient not a candidate for tPA, as she came outside the window. * Anxiety disorder, mood swings * Hypothyroidism Plan: * Symptoms are very unusual, atypical. Await MRI of the brain with and without contrast, rule out any CVA or demyelinating disease. * CTA of head and neck showed no evidence of dissection of the cervical internal carotid arteries or vertebral arteries or any evidence of significant stenosis at the carotid bifurcation. No evidence of intracranial high-grade stenosis or intracranial aneurysm. * 2D echo revealed normal left ventricular size, systolic function with EF 55 to 60%. Normal left ventricular wall thickness and wall motion. Normal left atrial size. Negative agitated saline bubble study for [id number] shunt. * Lipid panel is well-controlled with cholesterol 124, LDL 57, HDL 43 and triglycerides 120. * Hemoglobin A1c 5.5. * Agree with starting aspirin 325 mg daily for now. * Telemetry monitoring. * Patient was just recently started on Abilify 3 weeks ago. Discontinue Abilify for now.
--- NOTE | 2024-02-24 23:32 | P.PN ---
Subjective Progress Note Date: 02/24/24 Patient was seen for a follow-up. Patient complaining of pain over the C7 spinous process bump region. But then she changed her statement saying that it involves the right posterior shoulder region. Then she said also involves "slightly" left posterior shoulder region. She still feels that her speech is not back to baseline. Symptoms get worse at night. Yesterday she was saying that symptoms are not getting worse at night. Then she says the upper back pain comes and goes. Objective - Vital Signs Vital signs: Vital Signs Temp 97.5 F L 02/24/24 11:15 Pulse 80 02/24/24 11:15 Resp 18 02/24/24 13:55 BP 133/89 02/24/24 11:15 Pulse Ox 98 02/24/24 11:15 FiO2 Intake & Output 02/23/24 02/24/24 02/24/24 18:59 06:59 18:59 Intake Total 698 340 716 Balance 698 340 716 Intake: Oral 698 340 716 Other: Voiding Method Toilet Toilet # Voids 3 1 1 - Exam Mental status, speech and language functions are normal strength is normal gait is normal sensations normal. No ataxia. - Labs CBC & Chem 7: 02/21/24 16:45 02/21/24 16:45 Assessment and Plan Assessment: * 38-year-old female presenting with vague neurological symptoms of intermittent difficulty speaking, numbness of right side of the neck, blurred vision, dizziness, pain in the upper dorsal spine and across the posterior shoulder. Family also noticed some possible right facial droop that resolved in about a day and a half. Localization of symptoms are somewhat difficult, uncertain if cerebral, or cervical as the liter would not support facial drooping, blurred vision. Her neurological examination is normal. Patient's current NIH stroke scale is 0. CTA head and neck ruled out carotid or vertebral artery dissection. Patient not a candidate for tPA, as she came outside the window. * Anxiety disorder, mood swings * Hypothyroidism Plan: * Symptoms are very unusual, atypical. * MRI of the brain revealed no significant abnormality. I personally reviewed MRI and agree with the findings. No abnormal signal on the DWI or FLAIR sequences. No evidence of demyelination. * CTA of head and neck showed no evidence of dissection of the cervical internal carotid arteries or vertebral arteries or any evidence of significant stenosis at the carotid bifurcation. No evidence of intracranial high-grade stenosis or intracranial aneurysm. * 2D echo revealed normal left ventricular size, systolic function with EF 55 to 60%. Normal left ventricular wall thickness and wall motion. Normal left atrial size. Negative agitated saline bubble study for [id number] shunt. * Lipid panel is well-controlled with cholesterol 124, LDL 57, HDL 43 and triglycerides 120. * Hemoglobin A1c 5.5. * Agree with starting aspirin 325 mg daily for now. * Telemetry monitoring showing no arrhythmia. * Await acetylcholine receptor antibodies. * Patient was just recently started on Abilify 3 weeks ago. Discontinue Abilify for now. * Patient clear for discharge. Patient to follow-up with neurologist outpatient. Addendum: Acetylcholine receptor antibodies <0.30 (normal)
--- NOTE | 2024-02-25 16:37 | P.DS ---
Providers Date of admission: 02/23/24 11:11 Attending physician: Yung Palma MD Consults: 02/21/24 22:13 Consult Physician Routine Consulting Provider: True Angel Consult Reason/Comments: dysarthria Do you want consulting provider notified?: Yes Primary care physician: Yung Palma MD Hospital Course: Final Diagnosis Right-sided facial numbness, fluctuating episodes of difficulty speaking, blur red vision, neck pain TIA/CVA vs. complex migraine Cervical radiculopathy possible pinched nerve with negative xray. Complete prednisone taper. Hypertension Hypothyroidism Bipolar disorder Discharge Disposition Patient is stable for discharge home. Recommending to continue on aspirin 325 mg daily. Neurology recommending to discontinue Abilify as patient was recently started on this medication outpatient. Patient will need to follow-up with neurologist in 1 to 2 weeks outpatient. Patient will discharge on high-dose statin therapy as well as aspirin for primary stroke prevention. Patient is also given naproxen for the neck pain. Recommending to complete an oral prednisone taper. Patient is given nystatin swish and swallow as well as nystatin powder. Patient recommended to see her PCP Petrona maxwell has an appointment scheduled for March 01 at 9 AM. Hospital Course This is a 38-year-old female with past medical history significant for migraines, hypothyroidism, bipolar, anxiety, depression and multiple other medical issues presented to the ER yesterday with complaints of right-sided facial numbness, accompanied by intermittent blurred vision and dysarthria.. Vague historian. reports over the the last week she had mild migraines, neck pain approximately C5 to C6. Denies syncope, fall, injury or trauma. Denies chiropractor treatment .Denies motor strength loss, denies incoordination, denies dropping things. Denies numbness or tingling of extremities. Denies smoking, alcohol or illicit drug use. reports on Tuesday, another mild migraine developed accompanied by tenderness along bilateral posterior shoulders. Tuesday night, between 7 and 8 PM, symptoms progressed ,developed trouble speaking, fluctuating blurred vision ,swollen, numb jawline. Denies difficulty swallowing or eating. Denies facial droop. denies chest pain, palpitations or shortness of breath. Tuesday, took her son to the zoo. Proceeded to see her PCP on Tuesday who referred patient to the ER. Reports medication compliance including Abilify which was recently started on 01/30/2024. On admission, hypertensive with blood pressure 174/96. Afebrile, normal WBC. Hematology, coagulation panels unremarkable. Electrolytes and renal function stable, Hemoglobin A1c 5.5, troponins negative x 3, creatinine kinase 517, triglycerides 120, cholesterol 124, LDL 57, HDL 43.. Brain CT reported no acute intracranial hemorrhage or midline shift. EKG reported sinus rhythm, chest x-ray reported nonacute. CT angio head and neck reported no evidence of dissection of the cervical internal carotid arteries or vertebral arteries or any evidence of significant stenosis in the carotid bifurcations, no evidence of intracranial high-grade stenosis or intracranial aneurysm. Patient was admitted to the hospital with neurology consultation. She does continue to report significant discomfort to her cervical spine radiating into the shoulders. Brain MRI reveals no significant abnormality. No evidence for demyelination. Cervical spine x-ray reveals no acute fracture or dislocation seen in the cervical spine. Echocardiogram reveals normal LV size and systolic function and negative bubble study. Patients dysarthria dysphagia and right sided facial droop have resolved. Please see medication reconciliation for a list of current medications. Thank you for allowing us to participate in the care of this patient. The impression and plan of care has been dictated by June Nayak, Nurse Practitioner as directed. Dr. Anabella MD I have performed a history and physical examination and medical decision making of this patient, discussed the same with the dictator, and agree with the dictators assessment and plan as written, documented as a scribe. Based on total visit time, I have performed more than 50% of this visit. Patient Condition at Discharge: Stable Plan - Discharge Summary Discharge Rx Participant: No New Discharge Prescriptions: New Atorvastatin [Lipitor] 80 mg PO HS #30 tab Nystatin 100,000 Unit/gm Powd [Mycostatin Powder] 1 applic TOPICAL BID PRN #1 each PRN Reason: Rash Naproxen [Naprosyn] 250 mg PO BID 5 Days #10 tab Nystatin 100,000 Unit/ml Susp [Mycostatin Oral Susp] 5 ml PO QID 7 Days #150 ml methylPREDNISolone [Medrol Dose Pack] 0 mg PO DIRECTED #1 packet Aspirin 325 mg PO DAILY #30 tab Famotidine [Pepcid] 20 mg PO DAILY #30 tablet Continue Levothyroxine Sodium [Synthroid] 125 mcg PO DAILY Ibuprofen [Motrin Ib] 200 mg PO Q8H PRN PRN Reason: Pain Escitalopram [Lexapro] 10 mg PO DAILY Discontinued ARIPiprazole [Abilify] 10 mg PO DAILY Discharge Medication List Escitalopram [Lexapro] 10 mg PO DAILY 02/21/24 [History] Ibuprofen [Motrin Ib] 200 mg PO Q8H PRN 02/21/24 [History] Levothyroxine Sodium [Synthroid] 125 mcg PO DAILY 02/21/24 [History] Aspirin 325 mg PO DAILY #30 tab 02/24/24 [Rx] Atorvastatin [Lipitor] 80 mg PO HS #30 tab 02/24/24 [Rx] Famotidine [Pepcid] 20 mg PO DAILY #30 tablet 02/24/24 [Rx] Naproxen [Naprosyn] 250 mg PO BID 5 Days #10 tab 02/24/24 [Rx] Nystatin 100,000 Unit/gm Powd [Mycostatin Powder] 1 applic TOPICAL BID PRN #1 each 02/24/24 [Rx] Nystatin 100,000 Unit/ml Susp [Mycostatin Oral Susp] 5 ml PO QID 7 Days #150 ml 02/24/24 [Rx] methylPREDNISolone [Medrol Dose Pack] 0 mg PO DIRECTED #1 packet 02/24/24 [Rx] Follow up Appointment(s)/Referral(s): Buzz Law DO [STAFF PHYSICIAN] - 1 Week (Neurology ) Petrona Maxwell PAC [REFERRING] - 03/01/24 9:00 am Ambulatory/Diagnostic Orders: Basic Metabolic Panel [LAB.AMB] Time Frame: 3 Days, Location: None Selected Patient Instructions/Handouts: Stroke (DC) Activity/Diet/Wound Care/Special Instructions: Continue aspirin 325 mg daily and lipitor 80 mg HS for primary stroke prevention Continue on steroid taper Nystatin swish and swallow given for 7 days for the oral thrush Continue nystatin power under breasts and in groin where red twice a day Establish with a neurologist for follow up Discharge Disposition: HOME SELF-CARE
== END 2024-02-24 16:22 | disposition home or self-care (01) | DRG 103 ==
LOC: EC 16:01 → 3SCARD 22:12 → OBSVTOIN 02-23 11:11
PROVIDERS: ADMIT Family Medicine; ATTEND Family Medicine
DX: G43.109 Migraine with aura, not intractable, without status migrainosus (principal); G45.9 Transient cerebral ischemic attack, unspecified; E03.9 Hypothyroidism, unspecified; I10 Essential (primary) hypertension; F31.9 Bipolar disorder, unspecified; Z28.310 Unvaccinated for COVID-19; M54.12 Radiculopathy, cervical region; R13.10 Dysphagia, unspecified; R47.1 Dysarthria and anarthria; R29.810 Facial weakness; F41.9 Anxiety disorder, unspecified; Z79.890 Hormone replacement therapy; Z79.899 Other long term (current) drug therapy; Z88.0 Allergy status to penicillin
CPT/HCPCS: 25605; 36415; 70450; 70496; 70498; 70553; 71046; 72050; 80053; 80061; 82550; 83036; 83735; 84484; 85025; 85610; 85730; 86041; 93005; 93306; 96374; 96376; 99285